=== PATIENT | female | born 1965 | race Two or more races ===

== ENCOUNTER 2023-09-02 12:08 | Outpatient (OUT) | payer OTHER, SELFPAY ==
--- NOTE | 2023-09-02 12:27 | ECG_ITS ---
[facility] Test Date: 2023-09-02 Pat Name: MARSHALL CURTIS Department: Room: - Gender: Female [employer]: : 1965 Requested By: Order Number: [id number] Reading MD: BASIA ALLISON Measurements Intervals [place] Rate: 64 P: 48 [place]: 156 QRS: 15 QRSD: 92 T: 28 QT: 395 QTc: 410 Interpretive Statements SINUS RHYTHM No previous ECG available for comparison Electronically Signed On 09-04-2023 7:02:30 EDT by BASIA ALLISON
--- NOTE | 2023-09-02 13:00 | XR_ITS ---
The [address] [address] Patient Name: MARSHALL CURTIS MRN: [id number] date: 1965 Sex: F Assigned Patient Location: [facility] Current Patient Location: [facility] Accession/Order Number: [id number] Exam Date: 09/02/2023 13:20 Report Date: 09/02/2023 13:41 At the request of: NANCY JUAREZ Procedure: XR chest 2V EXAM: XR chest 2V HISTORY: Preop exam COMPARISON: 09/10/2014 TECHNIQUE: Upright PA and lateral chest x-ray FINDINGS: The heart is not enlarged and the vasculature is not distended. No acute infiltrate, effusion or pneumothorax is identified. Mild flattening of the hemidiaphragms suggest COPD. Degenerative changes are seen in the spine. Hardware projects over the lower cervical spine. XR/XR chest 2V IMPRESSION: No acute infiltrate or evidence of cardiac decompensation. Mild chronic changes are noted. Except for the interval surgery at the cervical spine, the overall appearance is essentially unchanged. Electronically authenticated by: JOSÉ MIGUEL MCNEIL Date: 09/02/2023 13:41
[2023-09-02 14:03] LABS: Basophils Absolute Auto 0.1 10^3/uL (0.0-0.1); Basophils Percent Auto 0.6 % (0.2-2.0); Eosinophils Absolute Auto 0.3 10^3/uL (0.0-0.7); Eosinophils Percent Auto 3.1 % (0.9-7.0); Hematocrit 41.5 % (36.0-48.0); Hemoglobin 13.7 g/dL (12.0-16.0); Immature Granulocytes Abs Auto 0.02 10^3/uL (0.00-0.03); Immature Granulocytes Pct Auto 0.3 % (0.0-0.5); Lymphocytes Absolute Auto 2.8 10^3/uL (1.2-3.8); Lymphocytes Percent Auto 35.4 % (20.5-60.0); Mean Corpuscular Volume 93.9 fL (81.0-99.0); Mean Platelet Volume 10.1 fL (9.5-13.5); Monocytes Absolute Auto 0.4 10^3/uL (0.3-0.8); Monocytes Percent Auto 4.6 % (1.7-12.0); Neutrophils Absolute Auto 4.5 10^3/uL (1.4-6.5); Platelet Count 342 10^3/uL (150-450); Red Blood Count 4.42 10^6/uL (4.20-5.40); Red Cell Distribution Width 13.3 % (11.0-15.0)
[2023-09-02 14:07] LABS: Alanine Aminotransferase 26 U/L (14-59); Albumin Globulin Ratio 0.9; Albumin Level 3.8 g/dL (3.4-5.0); Alkaline Phosphatase 100 U/L (46-116); Anion Gap 10.8; Aspartate Amino Transferase 18 U/L (15-37); BUN Creatinine Ratio 22.1; Bilirubin Direct 0.1 mg/dL (0.0-0.2); Bilirubin Total 0.5 mg/dL (0.2-1.0); Calcium 8.6 mg/dL (8.5-10.1); Chloride 105 mmol/L (98-107); Estimated GFR (African America >60 (>=60); Estimated GFR (Non-African Ame >60 (>=60); Glucose 84 mg/dL (74-106); Potassium 3.8 mmol/L (3.5-5.1); Sodium 140 mmol/L (136-145); Total Protein 7.8 g/dL (6.4-8.2)
[2023-09-02 14:12] LABS: INR 0.93; Prothrombin Time 9.9 sec (9.0-11.6)
== END 2023-09-02 12:09 | disposition home or self-care (01) ==
PROVIDERS: Visit Provider Orthopaedic Surgery
DX: Z01.810 Encounter for preprocedural cardiovascular examination (principal); Z01.812 Encounter for preprocedural laboratory examination; M75.102 Unspecified rotator cuff tear or rupture of left shoulder, not specified as traumatic
CPT/HCPCS: 71046; 80048; 80076; 85025; 85610; 85730; 93005

== ENCOUNTER 2023-09-14 11:38 | Day surgery (SDC) | payer OTHER, SELFPAY ==
[2023-09-02 12:57] VITALS: BP 171/92; PULSE 68; RESP 20; TEMP 36.3; O2SAT 98; BMI 42.1
[2023-09-14] VITALS (9 sets, daily range): BP systolic 122–168; BP diastolic 61–87; PULSE 70–83; RESP 12–20; TEMP 35.7–35.8; O2SAT 93–98; BMI 41.9
[2023-09-14 11:52] LABS: Basophils Absolute Auto 0.1 10^3/uL (0.0-0.1); Basophils Percent Auto 0.7 % (0.2-2.0); Eosinophils Absolute Auto 0.2 10^3/uL (0.0-0.7); Eosinophils Percent Auto 2.6 % (0.9-7.0); Hematocrit 40.4 % (36.0-48.0); Hemoglobin 13.5 g/dL (12.0-16.0); Immature Granulocytes Abs Auto 0.02 10^3/uL (0.00-0.03); Immature Granulocytes Pct Auto 0.3 % (0.0-0.5); Lymphocytes Absolute Auto 2.8 10^3/uL (1.2-3.8); Lymphocytes Percent Auto 38.2 % (20.5-60.0); Mean Corpuscular HGB Conc 33.4 g/dL (29.9-35.2); Mean Corpuscular Hemoglobin 31.4 pg (26.7-34.0); Mean Platelet Volume 9.6 fL (9.5-13.5); Monocytes Absolute Auto 0.4 10^3/uL (0.3-0.8); Monocytes Percent Auto 5.2 % (1.7-12.0); Neutrophils Absolute Auto 3.9 10^3/uL (1.4-6.5); Platelet Count 316 10^3/uL (150-450); White Blood Count 7.4 10^3/uL (4.0-11.0)
[2023-09-14] MEDS: LACTATED RINGER'S SOLUTION 1,000 ML 50 ML IV ×2 (12:29→15:22)
[2023-09-14] MEDS: CEFAZOLIN SODIUM/DEXTROSE,ISO 2 GM/50 ML PIGGYBACK IV (13:11)
[2023-09-14] MEDS: EPINEPHRINE HCL PF 1 MG/ML AMPULE 5 MG INJ (15:01)
--- NOTE | 2023-09-14 17:14 | PM.ORPRC ---
Procedure Note Date of procedure: 09/14/23 Pre-op diagnosis: Shoulder rotator cuff tear Post-op diagnosis: same as pre-op Procedure: Left shoulder arthroscopic rotator cuff repair Operative procedure: After informed consent was obtained the patient was brought to the operating room where a general anesthetic was administered. Preoperatively regional block was placed. The patient was placed in the beachchair position with all bony prominences well-padded. Examiner anesthesia the left shoulder revealed no instability and full range of motion. The left shoulder was prepped and draped in usual sterile fashion. Diagnostic arthroscopy was performed the standard anterior, posterior, and lateral arthroscopy portals. Findings included intact articular cartilage of the glenohumeral joint. Previous subscapularis repair was intact. There is a full-thickness tear of the supraspinatus tendon with minimal retraction. Biceps tendon was intact without any tearing. Axillary recess had no loose bodies. Labrum was intact circumferentially. The arthroscope was introduced in the subacromial space. There was very minimal bursitis removed with the arthroscopic shaver. The greater tuberosity where the rotator cuff and torn from was debrided down to bleeding bed of bone. The edge of the rotator cuff tear was debrided to more healthy tissue. 1 Arthrex suture tape and then 1 Arthrex fiber tape were placed in the torn rotator cuff in an inverted horizontal mattress fashion 1 anterior and 1 posterior. These were then repaired to the greater tuberosity with 1 Arthrex 4.75 bio composite swivel lock. Solid fixation was achieved. Shoulder was drained of arthroscopy fluid. Portals were closed with nylon suture. Sterile dressing was placed. UltraSling was placed. Patient was awakened and brought to the recovery room in stable condition. There were no intraoperative or immediate postoperative complications. Anesthesia: regional and General-LMA Surgeon: Luke Cruz Estimated blood loss (mL): 10 Pathology: none sent Condition: stable Disposition: PACU
== END 2023-09-14 16:11 | disposition home or self-care (01) ==
PROVIDERS: Visit Provider Orthopaedic Surgery
PROC: (CPT 29827; principal; 2023-09-14 13:05)
DX: M75.102 Unspecified rotator cuff tear or rupture of left shoulder, not specified as traumatic (principal); F17.210 Nicotine dependence, cigarettes, uncomplicated; M79.7 Fibromyalgia; I10 Essential (primary) hypertension; E78.5 Hyperlipidemia, unspecified; M48.02 Spinal stenosis, cervical region; M54.12 Radiculopathy, cervical region; E66.9 Obesity, unspecified; M19.90 Unspecified osteoarthritis, unspecified site; Z86.14 Personal history of Methicillin resistant Staphylococcus aureus infection; B19.20 Unspecified viral hepatitis C without hepatic coma; Z68.41 Body mass index [BMI] 40.0-44.9, adult
CPT/HCPCS: 29827; 36415; 64415; 76942; 85025; J2704